=== PATIENT | female | born 1980 | race Caucasian/White ===

== ENCOUNTER 2017-05-21 04:18 | Emergency (ER) | payer BC ==
[2017-05-21] MEDS ORDERED: Ketorolac 30 MG/ML SDV IVPUSH ONE (04:34)
[2017-05-21] MEDS ORDERED: Sodium Chloride 0.9% 1,000 ML IV ONE ×2 (04:34→04:51)
[2017-05-21] MEDS ORDERED: Sodium Chloride 0.9% 10 ML Syringe FLUSH PRN (04:34)
[2017-05-21] MEDS ORDERED: Ondansetron 4 MG/2 ML SDV IVPUSH ONE (04:34)
--- NOTE | 2017-05-21 04:35 | EDM.PDOC ---
ED HPI GENERAL MEDICAL PROBLEM - General Chief Complaint: Flank Pain Stated Complaint: FLANK PAIN Time Seen by Provider: 05/21/17 04:25 Source of Information: Reports: Patient History Limitations: Reports: No Limitations - History of Present Illness INITIAL COMMENTS - FREE TEXT/NARRATIVE: 37 y/o F with hx prior ureterolithiasis presents with left flank pain x 24 hrs. Sudden onset. Located in left flank. Sharp, constant, waxes and wanes, severe. No exacerbating or relieving factors. Feels very similar to prior ureterolithasiis. + Nausea, no vomiting. No fever but has the chills. No dysuria/hematuria. Also has mild left sided abdominal pain that's worse with movement. No CP or SOB. Hasn't previously required urological intervention to pass stones. Left Flank Pain Score (Numeric/FACES): 10 - Related Data Allergies Allergy/AdvReac Type Severity Reaction Status Date / Time No Known Allergies Allergy Verified 05/21/17 04:32 Home Meds: Home Meds ALPRAZolam [Xanax] 0.5 mg PO DAILY PRN 05/21/17 [History] Levothyroxine Sodium [Synthroid] 75 mcg PO DAILY 05/21/17 [History] Pantoprazole Sodium [Protonix] 40 mg PO DAILY 05/21/17 [History] Topiramate [Topamax] 100 mg PO DAILY 05/21/17 [History] buPROPion HCl [Wellbutrin Xl] 300 mg PO DAILY 05/21/17 [History] ED ROS GENERAL - Review of Systems Review Of Systems: See Below Constitutional: Reports: Chills, Malaise, Weakness. Denies: Fever HEENT: Reports: No Symptoms Respiratory: Reports: No Symptoms Cardiovascular: Denies: Chest Pain Endocrine: Reports: No Symptoms GI/Abdominal: Reports: Abdominal Pain, Nausea. Denies: Vomiting : Reports: Dysuria, Flank Pain. Denies: Hematuria Musculoskeletal: Reports: No Symptoms Skin: Reports: No Symptoms Neurological: Reports: No Symptoms Psychiatric: Reports: No Symptoms ED EXAM, RENAL/ - Physical Exam Exam: See Below Exam Limited By: No Limitations General Appearance: Alert, WD/WN, No Apparent Distress Eye Exam: Bilateral Eye: Normal Inspection Ears: Normal External Exam Nose: Normal Inspection, Normal Mucosa, No Blood Throat/Mouth: Normal Inspection, Normal Voice, No Airway Compromise Head: Atraumatic, Normocephalic Neck: Normal Inspection, Supple, Non-Tender, Full Range of Motion Respiratory/Chest: No Respiratory Distress, Lungs Clear, Normal Breath Sounds Cardiovascular: Normal Peripheral Pulses, Regular Rate, Rhythm, No Murmur GI/Abdominal: Soft, Other (mild TTP diffusely,most so on left abdomen, no rebound/guarding) Back Exam: Normal Inspection, CVA Tenderness (L). No: CVA Tenderness (R) Extremities: Normal Inspection Neurological: Alert, Oriented, Normal Cognition, No Motor/Sensory Deficits Psychiatric: Normal Affect, Normal Mood Skin Exam: Warm, Dry, Intact, Normal Color, No Rash Course - Vital Signs Last Recorded V/S: Last Vital Signs Temp 37.0 C 05/21/17 04:23 Pulse 81 05/21/17 04:23 Resp 18 05/21/17 04:23 BP Pulse Ox 100 05/21/17 04:23 - Orders/Labs/Meds Orders: Active Orders 24 hr Category Date Time Status Peripheral IV Care [RC] . DIRECTED Care 05/21/17 04:34 Active Abdomen Pelvis wo Cont [CT] Stat Exams 05/21/17 04:52 Taken CULTURE BLOOD [BC] Stat Lab 05/21/17 06:41 Ordered CULTURE BLOOD [BC] Stat Lab 05/21/17 06:41 Ordered CULTURE URINE [RM] Stat Lab 05/21/17 04:25 Received LACTIC ACID [CHEM] Stat Lab 05/21/17 06:41 Ordered Morphine Med 05/21/17 05:06 Active 4 mg IVPUSH Q2H PRN Sodium Chloride 0.9% [Normal Saline] 1,000 ml Med 05/21/17 06:45 Active IV ASDIRECTED Sodium Chloride 0.9% [Saline Flush] Med 05/21/17 04:34 Active 10 ml FLUSH ASDIRECTED PRN Blood Culture x2 Reflex Set [OM.PC] Stat Oth 05/21/17 06:41 Ordered Peripheral IV Insertion Adult [OM.PC] Routine Oth 05/21/17 04:34 Ordered Medication Orders Sodium Chloride (Normal Saline) 1,000 mls @ 100 mls/hr IV ASDIRECTED RAFAEL Morphine Sulfate (Morphine) 4 mg IVPUSH Q2H PRN PRN Reason: Pain Sodium Chloride (Saline Flush) 10 ml FLUSH ASDIRECTED PRN PRN Reason: Keep Vein Open Last Admin: 05/21/17 04:40 Dose: 10 ml Labs: Laboratory Tests 05/21/17 05/21/17 05/21/17 Range/Units 04:25 04:25 04:35 WBC 12.30 H (3.98-10.04) K/mm3 RBC 4.79 (3.98-5.22) M/mm3 Hgb 13.4 (11.2-15.7) gm/L Hct 41.1 (34.1-44.9) % MCV 85.8 (79.4-94.8) fl MCH 28.0 (25.6-32.2) pg MCHC 32.6 (32.2-35.5) g/dl RDW Std Deviation 45.9 (36.4-46.3) fL Plt Count 311 (182-369) K/mm3 MPV 9.8 (9.4-12.3) fl Neut % (Auto) 77.8 H (34.0-71.1) % Lymph % (Auto) 11.4 L (19.3-51.7) % Gaines % (Auto) 9.9 (4.7-12.5) % Eos % (Auto) 0.4 L (0.7-5.8) Baso % (Auto) 0.2 (0.1-1.2) % Neut # (Auto) 9.57 H (1.56-6.13) K/mm3 Lymph # (Auto) 1.40 (1.18-3.74) K/mm3 Gaines # (Auto) 1.22 H (0.24-0.36) K/mm3 Eos # (Auto) 0.05 (0.04-0.36) K/mm3 Baso # (Auto) 0.02 (0.01-0.08) K/mm3 Sodium (136-145) mEq/L Potassium (3.5-5.1) mEq/L Chloride (98-107) mEq/L Carbon Dioxide (21-32) mEq/L Anion Gap (5-15) BUN (7-18) mg/dL Creatinine (0.55-1.02) mg/dL Est Cr Clr Drug Dosing mL/min Estimated GFR (MDRD) (>60) mL/min BUN/Creatinine Ratio (14-18) Glucose (74-106) mg/dL Calcium (8.5-10.1) mg/dL Total Bilirubin (0.2-1.0) mg/dL AST (15-37) U/L ALT (14-59) U/L Alkaline Phosphatase (46-116) U/L Total Protein (6.4-8.2) g/dl Albumin (3.4-5.0) g/dl Globulin gm/dL Albumin/Globulin Ratio (1-2) Lipase (73-393) U/L Urine Color Dark yellow (Yellow) Urine Appearance Turbid H (Clear) Urine pH 7.0 (5.0-8.0) Ur Specific [place] > or = 1.030 (1.005-1.030) Urine Protein 3+ H (Negative) Urine Glucose (UA) Negative (Negative) Urine Ketones Negative (Negative) Urine Occult Blood 3+ H (Negative) Urine Nitrite Positive H (Negative) Urine Bilirubin Negative (Negative) Urine Urobilinogen 0.2 (0.2-1.0) Ur Leukocyte Esterase 2+ H (Negative) Urine RBC Too numerous to cnt H (0-5) /hpf Urine WBC Too numerous to cnt H (0-5) /hpf Ur Epithelial Cells 0-5 (0-5) /hpf Amorphous Sediment Few H (NOT SEEN) /hpf Urine Bacteria Many H (FEW) /hpf Urine Mucus Not seen (FEW) /hpf Urine HCG, Qual Negative (NEGATIVE) 05/21/17 Range/Units 04:35 WBC (3.98-10.04) K/mm3 RBC (3.98-5.22) M/mm3 Hgb (11.2-15.7) gm/L Hct (34.1-44.9) % MCV (79.4-94.8) fl MCH (25.6-32.2) pg MCHC (32.2-35.5) g/dl RDW Std Deviation (36.4-46.3) fL Plt Count (182-369) K/mm3 MPV (9.4-12.3) fl Neut % (Auto) (34.0-71.1) % Lymph % (Auto) (19.3-51.7) % Gaines % (Auto) (4.7-12.5) % Eos % (Auto) (0.7-5.8) Baso % (Auto) (0.1-1.2) % Neut # (Auto) (1.56-6.13) K/mm3 Lymph # (Auto) (1.18-3.74) K/mm3 Gaines # (Auto) (0.24-0.36) K/mm3 Eos # (Auto) (0.04-0.36) K/mm3 Baso # (Auto) (0.01-0.08) K/mm3 Sodium 138 (136-145) mEq/L Potassium 3.7 (3.5-5.1) mEq/L Chloride 103 (98-107) mEq/L Carbon Dioxide 22 (21-32) mEq/L Anion Gap 16.7 H (5-15) BUN 16 (7-18) mg/dL Creatinine 1.5 H (0.55-1.02) mg/dL Est Cr Clr Drug Dosing 51.48 mL/min Estimated GFR (MDRD) 39 (>60) mL/min BUN/Creatinine Ratio 10.7 L (14-18) Glucose 117 H (74-106) mg/dL Calcium 8.9 (8.5-10.1) mg/dL Total Bilirubin 0.6 (0.2-1.0) mg/dL AST 29 (15-37) U/L ALT 32 (14-59) U/L Alkaline Phosphatase 72 (46-116) U/L Total Protein 8.2 (6.4-8.2) g/dl Albumin 4.1 (3.4-5.0) g/dl Globulin 4.1 gm/dL Albumin/Globulin Ratio 1.0 (1-2) Lipase 145 (73-393) U/L Urine Color (Yellow) Urine Appearance (Clear) Urine pH (5.0-8.0) Ur Specific [place] (1.005-1.030) Urine Protein (Negative) Urine Glucose (UA) (Negative) Urine Ketones (Negative) Urine Occult Blood (Negative) Urine Nitrite (Negative) Urine Bilirubin (Negative) Urine Urobilinogen (0.2-1.0) Ur Leukocyte Esterase (Negative) Urine RBC (0-5) /hpf Urine WBC (0-5) /hpf Ur Epithelial Cells (0-5) /hpf Amorphous Sediment (NOT SEEN) /hpf Urine Bacteria (FEW) /hpf Urine Mucus (FEW) /hpf Urine HCG, Qual (NEGATIVE) Meds: Medications Generic Name Dose Route Start Last Admin Trade Name Freq PRN Reason Stop Dose Admin Sodium Chloride 1,000 mls @ 100 mls/hr 05/21/17 06:45 Normal Saline IV ASDIRECTED RAFAEL Morphine Sulfate 4 mg 05/21/17 05:06 Morphine IVPUSH Q2H PRN Pain Sodium Chloride 10 ml 05/21/17 04:34 05/21/17 04:40 Saline Flush FLUSH 10 ml ASDIRECTED PRN Administration Keep Vein Open Discontinued Medications Generic Name Dose Route Start Last Admin Trade Name Freq PRN Reason Stop Dose Admin Sodium Chloride 1,000 mls @ 1,000 mls/hr 05/21/17 04:34 05/21/17 04:40 Normal Saline IV 05/21/17 05:33 1,000 mls/hr ONETIME ONE Administration Sodium Chloride 1,000 mls @ 1,000 mls/hr 05/21/17 04:51 05/21/17 05:24 Normal Saline IV 05/21/17 05:50 1,000 mls/hr ONETIME ONE Administration Ceftriaxone Sodium 1,000 mg/ 50 mls @ 200 mls/hr 05/21/17 04:51 Sodium Chloride IV 05/21/17 05:05 ONETIME ONE Ceftriaxone Sodium 1 gm/ 100 mls @ 200 mls/hr 05/21/17 05:18 05/21/17 05:24 Sodium Chloride IV 05/21/17 05:47 200 mls/hr ONETIME ONE Administration Ketorolac Tromethamine 30 mg 05/21/17 04:34 05/21/17 04:39 Toradol IVPUSH 05/21/17 04:35 30 mg ONETIME ONE Administration Ondansetron HCl 4 mg 05/21/17 04:34 05/21/17 04:39 Zofran IVPUSH 05/21/17 04:35 4 mg ONETIME ONE Administration - Re-Assessments/Exams Free Text/Narrative Re-Assessment/Exam: 05/21/17 06:33 CT a/p shows at least two 4m left UVJ stones causing moderate hydronephrosis. Her creatinine is elevated at 1.5 and UA is c/w infection. I'm concerned about infected stone. We don't have urology services here. [facility] called at 06:34am. Discussed with Dr. Roman urologist who agrees that patient should be transferred and requests I discuss with hospitalist Dr. Powers who accepts patient for transfer. 05/21/17 06:38 05/21/17 06:40 Departure - Departure Time of Disposition: 06:57 Disposition: DC/Tfer to [facility] Clinical Impression: UTI, Urinary tract infectious disease, Ureterolithiasis, Nausea - Discharge Information Referrals: PCP,Not In Area [Primary Care Provider] - - My Orders Last 24 Hours: My Active Orders 05/21/17 04:25 CULTURE URINE [RM] Stat 05/21/17 04:34 Peripheral IV Care [RC] . DIRECTED Sodium Chloride 0.9% [Saline Flush] 10 ml FLUSH ASDIRECTED PRN Peripheral IV Insertion Adult [OM.PC] Routine 05/21/17 04:52 Abdomen Pelvis wo Cont [CT] Stat 05/21/17 05:06 Morphine 4 mg IVPUSH Q2H PRN 05/21/17 06:41 CULTURE BLOOD [BC] Stat CULTURE BLOOD [BC] Stat LACTIC ACID [CHEM] Stat Blood Culture x2 Reflex Set [OM.PC] Stat 05/21/17 06:45 Sodium Chloride 0.9% [Normal Saline] 1,000 ml IV ASDIRECTED - Assessment/Plan Last 24 Hours: My Active Orders 05/21/17 04:25 CULTURE URINE [RM] Stat 05/21/17 04:34 Peripheral IV Care [RC] . DIRECTED Sodium Chloride 0.9% [Saline Flush] 10 ml FLUSH ASDIRECTED PRN Peripheral IV Insertion Adult [OM.PC] Routine 05/21/17 04:52 Abdomen Pelvis wo Cont [CT] Stat 05/21/17 05:06 Morphine 4 mg IVPUSH Q2H PRN 05/21/17 06:41 CULTURE BLOOD [BC] Stat CULTURE BLOOD [BC] Stat LACTIC ACID [CHEM] Stat Blood Culture x2 Reflex Set [OM.PC] Stat 05/21/17 06:45 Sodium Chloride 0.9% [Normal Saline] 1,000 ml IV ASDIRECTED
[2017-05-21] MEDS ORDERED: cefTRIAXone 1,000 MG in Sodium Chloride 0.9% 50 ML IV ONE (04:51)
[2017-05-21] MEDS ORDERED: Morphine 4 MG/ML Syringe IVPUSH PRN (05:06)
[2017-05-21] MEDS ORDERED: cefTRIAXone 1 GM in Sodium Chloride 0.9% 100 ML IV ONE (05:18)
[2017-05-21] MEDS ORDERED: Sodium Chloride 0.9% 1,000 ML IV SCH (06:45)
--- NOTE | 2017-05-21 09:56 | CT ---
CT abdomen and pelvis Technique: Multiple axial sections were obtained from above the kidneys inferiorly through the pubic symphysis. Intravenous and oral contrast not utilized. Study has been performed as a ureteral stone protocol. Findings: Dilated left pelvicalyceal system and left ureter are seen down into the pelvis. These findings are felt to be due to a large distal left ureteral stone measuring approximately 1.1 cm. This stone occurs approximately 7-8 cm from the UVJ. Several other calcifications are seen within the pelvis believed to represent phleboliths. Several calcifications which appear to be parenchymal in location noted within the left kidney. Small nonobstructing stone noted within the right kidney measuring about 4-5 mm. Visualized lung bases show nothing acute. Noncontrast appearance of the liver and spleen appears within normal limits. Incidental note of calcified granuloma within the spleen. Previous stomach surgery is noted. Adrenal glands show no nodule. Aorta shows no aneurysmal dilatation. Pancreas appears within normal limits. No retroperitoneal adenopathy or mesenteric abnormalities are seen. No pelvic mass or adenopathy is seen. Bone window settings were reviewed which appear within normal limits for the patient's age. Impression: 1. Left-sided hydronephrosis. Ureteral obstruction is seen within the pelvis. This obstruction appears to be due to an obstructing stone measuring 1.1 cm in size (this was not mentioned on preliminary report by [facility] [facility], obstruction on preliminary report was felt to be due to 2 small stones which I believe are phleboliths within the pelvis). 2. Small nonobstructing stone within the right kidney. Minimal parenchymal calcification seen within left kidney. 3. Other incidental findings. No other acute abnormality identified on noncontrast CT study of the abdomen and pelvis. Diagnostic code #3 I mostly agree with preliminary report issued by [facility], please see impression for further details ([facility] preliminary report dictated on 05/21/17, 6:36 AM Central Time)
== END 2017-05-21 07:21 | disposition critical access hospital (66) ==
LOC: JD.ED 04:18
DX: N13.2 Hydronephrosis with renal and ureteral calculous obstruction (principal); N39.0 Urinary tract infection, site not specified; R11.0 Nausea; Z79.899 Other long term (current) drug therapy
CPT/HCPCS: 36415; 74176; 80053; 81001; 81025; 83605; 83690; 85025; 87040; 87086; 87088; 87186; 96361; 96365; 96375; 99285; J0696; J1885; J2405; J7030; J7040; J7050; 99284